=== PATIENT | male | born 1960 ===

== ENCOUNTER 2022-11-15 01:00 | Outpatient (CLI) | payer MEDICARE, SELFPAY | END 2022-11-15 23:00 | LOC: RAD 12-03 20:07 | PROVIDERS: Family Provider Physician Assistant; PCP Nurse Practitioner; Visit Provider Nurse Practitioner | DX: M17.0 Bilateral primary osteoarthritis of knee (principal); M25.561 Pain in right knee; M25.562 Pain in left knee | CPT/HCPCS: 73560; 73565; 76706; 99204 ==